=== PATIENT | male | born 2000 | race Caucasian/White ===

== ENCOUNTER 2020-11-22 03:48 | Emergency (ER) | payer OTHER ==
[~2020-11-22 03:48] MED LIST: KEFLEX500 MG PO
== END 2020-11-22 07:22 | disposition home or self-care (01) ==
LOC: ER1 03:48
DX: S01.01XA Laceration without foreign body of scalp, initial encounter (principal); S01.312A Laceration without foreign body of left ear, initial encounter; J45.909 Unspecified asthma, uncomplicated; W25.XXXA Contact with sharp glass, initial encounter
CPT/HCPCS: 12001; 12011; 73130; 99284

== ENCOUNTER 2020-12-01 16:06 | Emergency (ER) | payer OTHER | END 2020-12-01 16:35 | disposition home or self-care (01) | LOC: ER1 16:06 | DX: S01.01XD Laceration without foreign body of scalp, subsequent encounter (principal); X58.XXXD Exposure to other specified factors, subsequent encounter | CPT/HCPCS: 99281 ==

== ENCOUNTER 2021-04-21 21:11 | Emergency (ER) | payer OTHER | END 2021-04-21 23:00 | disposition left against medical advice (07) | LOC: ER1 21:11 | DX: S20.212A Contusion of left front wall of thorax, initial encounter (principal); F17.290 Nicotine dependence, other tobacco product, uncomplicated; W01.198A Fall on same level from slipping, tripping and stumbling with subsequent striking against other object, initial encounter; Y92.009 Unspecified place in unspecified non-institutional (private) residence as the place of occurrence of the external cause | CPT/HCPCS: 71111; 99283 ==